=== PATIENT | female | born 1980 | race Caucasian/White ===

== ENCOUNTER 2018-04-24 07:16 | Emergency (ER) | payer SELFPAY ==
[~2018-04-24] VITALS: Ht 165.1 cm; Wt 74.5 kg
[2018-04-24 07:18] VITALS: Ht 165.1 cm; Wt 74.5 kg
[2018-04-24] MEDS ORDERED: CYCLOBENZAPRINE10 MG PO (07:46)
[2018-04-24] MEDS ORDERED: ACETAMINOPHEN500 M1 PO (07:46)
[2018-04-24] MEDS ORDERED: IBUPROFEN800 MG PO (07:46)
[2018-04-24 08:24] VITALS: BP 110/74
== END 2018-04-24 08:24 | disposition home or self-care (01) ==
LOC: D.ER 07:16
DX: M54.6 Pain in thoracic spine (principal); M62.830 Muscle spasm of back; S29.012A Strain of muscle and tendon of back wall of thorax, initial encounter; X58.XXXA Exposure to other specified factors, initial encounter; Y93.89 Activity, other specified; Y92.019 Unspecified place in single-family (private) house as the place of occurrence of the external cause; F17.200 Nicotine dependence, unspecified, uncomplicated

== ENCOUNTER 2018-11-08 20:15 | Emergency (ER) | payer OTHER ==
[~2018-11-08] VITALS: Ht 165.1 cm; Wt 77.3 kg
[~2018-11-08 20:15] MED LIST: ACETAMINOPHEN500 M1 PO; CYCLOBENZAPRINE10 MG PO; IBUPROFEN800 MG PO
[2018-11-08 20:26] VITALS: Ht 165.1 cm; Wt 77.3 kg
[2018-11-08] MEDS ORDERED: PREVACID15 MG (20:29)
[2018-11-08] MEDS ORDERED: VOLTAREN75 MG PO (22:44)
[2018-11-08 22:55] VITALS: BP 155/80
== END 2018-11-08 22:55 | disposition home or self-care (01) ==
LOC: D.ER 20:15
DX: M25.562 Pain in left knee (principal); M79.605 Pain in left leg